=== PATIENT | male | born 1985 | race African-American/Black ===

== ENCOUNTER 2017-03-24 23:00 | Emergency (ER) | payer SELFPAY ==
[~2017-03-24] VITALS: Ht 182.9 cm; Wt 92.0 kg
[2017-03-25 06:15] VITALS: BP 140/76
== END 2017-03-25 07:30 | disposition home or self-care (01) ==
LOC: ER 23:00
DX: B35.3 Tinea pedis (principal)
CPT/HCPCS: 99282

== ENCOUNTER 2017-04-06 01:24 | Emergency (ER) | payer MEDICAID ==
[~2017-04-06] VITALS: Ht 182.9 cm; Wt 87.0 kg
[2017-04-06] MEDS ORDERED: IBUPROFEN 600MG TABLET PO ONE (07:15)
[2017-04-06 07:38] VITALS: BP 110/69
== END 2017-04-06 07:30 | disposition home or self-care (01) ==
LOC: ER 01:24
DX: M54.6 Pain in thoracic spine (principal); M54.2 Cervicalgia; F12.90 Cannabis use, unspecified, uncomplicated
CPT/HCPCS: 99282

== ENCOUNTER 2017-09-27 19:53 | Emergency (ER) | payer MEDICAID ==
[~2017-09-27] VITALS: Ht 182.9 cm; Wt 91.0 kg
[2017-09-27] MEDS ORDERED: SODIUM CHLORIDE 0.9% 1,000 ML IV ONE (20:01)
[2017-09-27] MEDS ORDERED: ONDANSETRON HCL 4MG/2ML VIAL IV STA (20:01)
[2017-09-27 20:43] LABS: EOSINOPHILS % 0.6 % (0.0-5.0); HEMOGLOBIN. 14.4 g/dL (14.0-18.0); LYMPHOCYTES % 27.8 % (20.0-50.0); MEAN CORPUSCULAR HEMOGLOBIN 24.2 pg (28.0-32.0); MEAN CORPUSCULAR VOLUME 75.5 fL (80.0-94.0); MEAN PLATELET VOLUME 8.6 fl (7.4-10.4); MONOCYTES % 12.8 % (2.0-8.0); NEUTROPHILS % 57.8 % (40.0-76.0); PLATELET 242 x1000/uL (130-400); RED BLOOD CELL COUNT 5.95 mill/uL (4.7-6.1); RED CELL DISTRIBUTION WIDTH 15.4 % (11.6-14.6)
[2017-09-27 20:46] LABS: CHLORIDE 108 mEq/L (98-107)
[2017-09-27 20:49] LABS: ETHANOL BLOOD 120 mg/dL
[2017-09-27] MEDS ORDERED: POTASSIUM CHLORIDE INJ 40 MEQ in DEXT 5% WATER 250 ML IV NR (22:30)
[2017-09-28 00:49] LABS: CLARITY URINE CLEAR (CLEAR); COLOR URINE YELLOW (YELLOW); KETONES URINE NEGATIVE (NEGATIVE); LEUKOCYTE ESTERASE URINE NEGATIVE (NEGATIVE); NITRITE URINE NEGATIVE (NEGATIVE); OCCULT BLOOD URINE NEGATIVE (NEGATIVE); PROTEIN URINE NEGATIVE (NEGATIVE); UROBILINOGEN URINE 0.2 E.U./dL (0.2-1.0)
[2017-09-28] MEDS ORDERED: POTASSIUM CHLORIDE 20MEQ TABLET SR PO ONE (01:00)
[2017-09-28 01:07] LABS: *AMPHETAMINES SCREEN URINE NEGATIVE (NEGATIVE); *BARBITURATES SCREEN URINE NEGATIVE (NEGATIVE); *BENZODIAZEPINES SCREEN URINE NEGATIVE (NEGATIVE); *COCAINE SCREEN URINE NEGATIVE (NEGATIVE); CANNABINOID URINE SCREEN PRESUMTIVE POSITIVE (NEGATIVE); METHADONE URINE SCREEN NEGATIVE (NEGATIVE); OPIATES URINE SCREEN NEGATIVE (NEGATIVE); PHENCYCLIDINE URINE SCREEN NEGATIVE (NEGATIVE)
[2017-09-28 02:53] VITALS: BP 136/75
== END 2017-09-28 04:30 | disposition home or self-care (01) ==
LOC: ER 19:53
DX: F10.129 Alcohol abuse with intoxication, unspecified (principal); R11.10 Vomiting, unspecified; R41.82 Altered mental status, unspecified; F19.10 Other psychoactive substance abuse, uncomplicated; Y90.9 Presence of alcohol in blood, level not specified
CPT/HCPCS: 36415; 70450; 80053; 80305; 81003; 85025; 96361; 96374; 99285; G0482; J2405; J7030; J3480; J7060

== ENCOUNTER 2018-08-12 01:10 | Emergency (ER) | payer MEDICAID ==
[~2018-08-12] VITALS: Ht 185.4 cm; Wt 78.0 kg
[2018-08-12 01:26] VITALS: BP 116/70
[2018-08-12] MEDS ORDERED: IBUPROFEN 600MG TABLET PO ONE (02:00)
== END 2018-08-12 02:37 | disposition home or self-care (01) ==
LOC: ER 01:10
DX: M72.2 Plantar fascial fibromatosis (principal); M79.672 Pain in left foot; M79.671 Pain in right foot; F12.10 Cannabis abuse, uncomplicated; F17.200 Nicotine dependence, unspecified, uncomplicated
CPT/HCPCS: 99282

== ENCOUNTER 2018-12-11 07:49 | Emergency (ER) | payer MEDICAID ==
[~2018-12-11] VITALS: Ht 170.2 cm; Wt 78.0 kg
[2018-12-11] MEDS ORDERED: IBUPROFEN 600MG TABLET PO ONE (10:15)
[2018-12-11] MEDS ORDERED: OXYCODONE HCL/ACETAMINOPHEN 5/325MG TABLET PO ONE (10:15)
[2018-12-11 10:27] VITALS: BP 122/62
== END 2018-12-11 10:28 | disposition home or self-care (01) ==
LOC: ER 07:59
DX: M79.18 Myalgia, other site (principal); F17.200 Nicotine dependence, unspecified, uncomplicated; F12.10 Cannabis abuse, uncomplicated
CPT/HCPCS: 99283; 99406

== ENCOUNTER 2019-01-06 00:23 | Emergency (ER) | payer MEDICAID ==
[~2019-01-06] VITALS: Ht 182.9 cm; Wt 79.0 kg
[2019-01-06] MEDS ORDERED: KETOROLAC 30MG/ML VIAL IM ONE (02:15)
[2019-01-06 02:30] VITALS: BP 115/75
== END 2019-01-06 02:41 | disposition home or self-care (01) ==
LOC: ER 00:23
DX: M79.18 Myalgia, other site (principal); M25.512 Pain in left shoulder; F17.200 Nicotine dependence, unspecified, uncomplicated; V79.88XA Bus occupant (driver) (passenger) injured in other specified transport accidents, initial encounter; Y93.89 Activity, other specified; Y92.410 Unspecified street and highway as the place of occurrence of the external cause
CPT/HCPCS: 96372; 99283; J1885

== ENCOUNTER 2019-03-05 01:31 | Emergency (ER) | payer SELFPAY ==
[~2019-03-05] VITALS: Ht 182.9 cm; Wt 79.0 kg
[2019-03-05] MEDS ORDERED: IBUPROFEN 800MG TABLET PO ONE (06:15)
[2019-03-05 06:33] VITALS: BP 110/64
== END 2019-03-05 06:38 | disposition home or self-care (01) ==
LOC: ER 01:31
DX: L84 Corns and callosities (principal); M79.671 Pain in right foot; M79.672 Pain in left foot; F17.200 Nicotine dependence, unspecified, uncomplicated
CPT/HCPCS: 99281

== ENCOUNTER 2019-06-15 12:50 | Emergency (ER) | payer SELFPAY ==
[~2019-06-15] VITALS: Ht 182.9 cm; Wt 79.0 kg
[2019-06-15 13:07] VITALS: BP 117/69
== END 2019-06-15 14:55 | disposition home or self-care (01) ==
LOC: ER 12:50
DX: K04.7 Periapical abscess without sinus (principal)
CPT/HCPCS: 99281

== ENCOUNTER 2019-06-23 09:28 | Emergency (ER) | payer MEDICAID ==
[~2019-06-23] VITALS: Ht 182.9 cm; Wt 73.0 kg
[2019-06-23] MEDS ORDERED: IBUPROFEN 600MG TABLET PO ONE (10:00)
[2019-06-23 10:02] VITALS: BP 139/75
== END 2019-06-23 10:03 | disposition home or self-care (01) ==
LOC: ER 09:28
DX: R68.84 Jaw pain (principal)
CPT/HCPCS: 99281